=== PATIENT | male | born 1970 | race Caucasian/White ===

== ENCOUNTER 2019-06-19 14:51 | Outpatient (CLI) | payer OTHER, SELFPAY ==
--- NOTE | 2019-06-19 15:17 | XR_ITS ---
WS: [id number] KNEE LEFT TECHNIQUE: 3 views of the left knee CLINICAL INFORMATION: LEFT KNEE PAIN COMPARISON: None. FINDINGS: Left knee is normal in appearance. No evidence of acute fracture dislocation. No significant effusion . Patella is normal. XR/XR knee LT 3V* [id number] IMPRESSION: Normal left knee.
== END 2019-06-19 14:52 | disposition home or self-care (01) ==
LOC: WPI 14:58
PROVIDERS: Family Provider Family Medicine; PCP Family Medicine; Visit Provider Family Medicine
DX: M25.562 Pain in left knee (principal)
CPT/HCPCS: 73562

== ENCOUNTER 2019-12-16 17:47 | Emergency (ER) | payer OTHER, SELFPAY ==
[2019-12-16 18:23] VITALS: BP 115/72; PULSE 82; RESP 16; TEMP 36.7; O2SAT 96; BMI 25.0
--- NOTE | 2019-12-16 18:32 | W.ED.ABDPA2 ---
HPI - Abdominal Pain General: Chief Complaint: Abdominal Pain Stated Complaint: abd pain Time Seen by Provider: 12/16/19 18:30 Source: patient Mode of arrival: ambulatory Limitations: no limitations History of Present Illness: HPI narrative: Patient is a nice 49-year-old male who presents to ED today along with his for complaints of right lower abdominal pain. Patient tells me at the end of November he was having some right-sided abdominal pain and diagnosed clinically with diverticulitis as he has had similar flares previously. He was placed on Cipro and Flagyl and states the pain subsided after being on antibiotics. He states 3 days ago pain began again and seem to be different than his typical diverticulitis flares. He tells me pain seems to initially be better with eating but approximately 30 to 40 minutes later will have diffuse cramping and the urge to defecate. He states pain also seems to be worse with bending over. He has not been running fevers. He has not had any vomiting. No diarrhea. He has not had any melanotic stools or hematochezia. Patient was initially seen by PCP Dr. Boyce and sent to the emergency department for further evaluation. MD elicited complaint: abdominal pain Pertinent past history: diverticulitis Onset (ago): day(s) Pain Consistency: constant Location: RLQ Radiation: none Migration to: no migration Exacerbating factors: eating and movement Relieving factors: nothing Associated Symptoms: Denies chills, constipation, diarrhea, dysuria, fever(s), heartburn, hematochezia, hematemesis, melena, nausea and vomiting Review of Systems Const: Denies: fever(s), chills, body aches, fatigue or malaise Card: Denies: chest pain Resp: Denies: dyspnea GI: Reports: abdominal pain; Denies: nausea, vomiting, hematemesis, heartburn, diarrhea, constipation, hematochezia, melena or white/light colored stool : Denies: flank pain, difficulty urinating, dysuria, urinary frequency, urinary urgency or urinary hesitancy Musc: Denies: neck pain or back pain Skin/Breast: Denies: rash Neuro: Denies: headache(s) PFS ED PFSH: Social History (Updated 12/16/19 @ 18:29 by Arjun Vasquez RN) Smoking and tobacco status: never smoked Alcohol intake: never Substance/Drug Use: never Physical Exam Const: COMMON NORMALS: no acute distress, average body habitus, patient oriented x3, no limitations, healthy appearing, alert and well nourished Resp: COMMON NORMALS: normal respiratory effort and clear to auscultation bilaterally AUSCULTATION: clear to auscultation bilaterally Cardio: COMMON NORMALS: regular rate and regular rhythm RATE: regular rate RHYTHM: regular rhythm GI: COMMON NORMALS: Normal to inspection, nondistended, normoactive bowel sounds present, Soft to palpation, No hepatosplenomegaly present and no masses PALPATION: Yes Soft to palpation, Yes Tenderness to palpation present (GI) (mainly to RLQ; mild suprapubic and LLQ pain) and Yes No hepatosplenomegaly present : COMMON NORMALS: Yes no CVA tenderness BLADDER/KIDNEY EXAM: Yes no CVA tenderness Back/Pelvis: COMMON NORMALS: no CVA tenderness Extremity: COMMON NORMALS: normal to inspection Neuro: COMMON NORMALS: patient oriented x3 SENSORIUM/ORIENTATION: Yes alert Skin: COMMON NORMALS: no rashes or lesions noted GENERAL SKIN EXAM: no rashes or lesions noted Course Vital Signs: Vital signs: Vital Signs Temperature 98.0 F 12/16/19 18:23 Pulse Rate 78 12/16/19 20:00 Respiratory Rate 18 12/16/19 20:00 Blood Pressure 123/67 12/16/19 20:00 Pulse Oximetry 100 12/16/19 20:00 MDM - Abdominal Pain MDM Narrative: Medical decision making narrative: Patient's labs are non-concerning at this time. CT of his abdomen showing increased fecal content in the colon as well as some incidental findings of bilateral nonobstructing renal stones and enlarged prostate. Patient will be discharged home with instructions to increase fiber, use Colace/MiraLAX as needed for constipation, and recommend follow-up with Dr. Boyce. Strict return to ED precautions given. Lab Data: Labs: Lab Results 12/16/19 12/16/19 12/16/19 Range/Units 18:42 18:45 18:45 WBC Cancelled Corrected WBC Cancelled RBC Cancelled Hgb Cancelled Hct Cancelled MCV Cancelled MCH Cancelled MCHC Cancelled RDW Cancelled Plt Count Cancelled MPV Cancelled Gran % Cancelled Neut % (Auto) Cancelled Lymph % (Auto) Cancelled Hodgeman % (Auto) Cancelled Eos % (Auto) Cancelled Baso % (Auto) Cancelled Neut # (Auto) Cancelled Lymph # (Auto) Cancelled Hodgeman # (Auto) Cancelled Eos # (Auto) Cancelled Baso # (Auto) Cancelled Absolute Gran (aut o) Cancelled Nucleated RBC % (a uto) Cancelled Nucleated RBCs # Cancelled Sodium 136 (136-145) mmol/L Potassium 4.2 (3.5-5.1) mmol/L Chloride 97 L (98-107) mmol/L Carbon Dioxide 31 H (22-29) mmol/L Anion Gap 12.2 (5-19) BUN 15 (6-20) mg/dL Creatinine 0.9 (0.7-1.2) mg/dL GFR Calculation 90.4 (90-130) mL/min Glucose 112 (65-115) mg/dL Calculated Osmolal ity 279 L (285-295) mOsm/k g Lactic Acid (0.5-2.2) mmol/L Calcium 9.5 (8.5-10.5) mg/dL Total Bilirubin 0.7 (0.15-1.2) mg/dL AST 18 (0-40) U/L ALT 26 (0-41) U/L Alkaline Phosphata se 54 (40-130) IU/L Total Protein 7.5 (6.6-8.7) g/dL Albumin 4.8 (3.5-5.2) g/dL Globulin 2.7 (1.3-4.6) g/dL Lipase 83 H (13-60) U/L Urine Color Yellow (Yellow) Urine Appearance Clear (CLEAR) Urine pH 7 (5-7) Ur Specific Gravit y 1.010 (1.005-1.030) Urine Protein Neg (Negative) Urine Glucose (UA) Norm (Normal) Urine Ketones Negative (Negative) Urine Blood Neg (Negative) Urine Nitrate Negative (Negative) Urine Bilirubin Neg (NEGATIVE) Urine Urobilinogen Neg (Negative) mg/dL Ur Leukocyte Ramona ase Negative (Negative) Urine RBC None (0-2) /hpf Urine WBC None (0-5) /hpf Ur Squamous Epith Cells 0-4 H (0-5) Urine Bacteria None (NONE) 12/16/19 12/16/19 Range/Units 18:45 19:52 WBC 8.5 Corrected WBC RBC 4.84 Hgb 14.3 Hct 43.7 MCV 90.3 MCH 29.5 MCHC 32.7 RDW 12.0 L Plt Count 260 MPV 10.0 Gran % Neut % (Auto) 49.0 Lymph % (Auto) 37.3 Hodgeman % (Auto) 8.6 Eos % (Auto) 4.3 Baso % (Auto) 0.6 Neut # (Auto) 4.15 Lymph # (Auto) 3.2 Hodgeman # (Auto) 0.7 Eos # (Auto) 0.4 Baso # (Auto) 0.1 Absolute Gran (aut o) Nucleated RBC % (a uto) 0 Nucleated RBCs # 0.0 Sodium (136-145) mmol/L Potassium (3.5-5.1) mmol/L Chloride (98-107) mmol/L Carbon Dioxide (22-29) mmol/L Anion Gap (5-19) BUN (6-20) mg/dL Creatinine (0.7-1.2) mg/dL GFR Calculation (90-130) mL/min Glucose (65-115) mg/dL Calculated Osmolal ity (285-295) mOsm/k g Lactic Acid 0.5 (0.5-2.2) mmol/L Calcium (8.5-10.5) mg/dL Total Bilirubin (0.15-1.2) mg/dL AST (0-40) U/L ALT (0-41) U/L Alkaline Phosphata se (40-130) IU/L Total Protein (6.6-8.7) g/dL Albumin (3.5-5.2) g/dL Globulin (1.3-4.6) g/dL Lipase (13-60) U/L Urine Color (Yellow) Urine Appearance (CLEAR) Urine pH (5-7) Ur Specific Gravit y (1.005-1.030) Urine Protein (Negative) Urine Glucose (UA) (Normal) Urine Ketones (Negative) Urine Blood (Negative) Urine Nitrate (Negative) Urine Bilirubin (NEGATIVE) Urine Urobilinogen (Negative) mg/dL Ur Leukocyte Ramona ase (Negative) Urine RBC (0-2) /hpf Urine WBC (0-5) /hpf Ur Squamous Epith Cells (0-5) Urine Bacteria (NONE) Imaging Data ^: CT Abd/Pel: Radiologist's impression: [facility] [address] [place] [address] CT Scan Report Signed Patient: Edwin Almeida Unit #: [id number] : 1970 Age/Sex: 49 / M ADM Date: 12/16/19 Loc: ER Room/Bed: Attending Dr: Ordering Provider/Ordering MD: Laura Rollins Date of Service: 12/16/19 Procedure(s): CT abdomen pelvis w con* [id number] Accession Number(s): [id number] Report Number: [id number] PROCEDURE INFORMATION: Exam: CT Abdomen And Pelvis With Contrast Exam date and time: 12/16/2019 7:01 PM Age: 49 years old Clinical indication: Other: Diarrhea; Abdominal pain; Other: Lower and RT side; Additional info: R sided abdominal pain TECHNIQUE: Imaging protocol: Computed tomography of the abdomen and pelvis with intravenous contrast. Sagittal and coronal reformatted images were created and reviewed. Radiation optimization: All CT scans at this facility use at least one of these dose optimization techniques: automated exposure control; mA and/or kV adjustment per patient size (includes targeted exams where dose is matched to clinical indication); or iterative reconstruction. Contrast material: OMNI 300; Contrast volume: 94 ml; Contrast route: INTRAVENOUS (IV); COMPARISON: No relevant prior studies available. RADIATION DOSE METRICS: Total DLP (mGy-cm): 709.41 FINDINGS: Lungs: Visualized lungs are clear. Pleural space: No pleural effusion. Heart: Visualized portions of the heart are unremarkable. Liver: The liver is unremarkable. Gallbladder and bile ducts: The gallbladder is unremarkable. No biliary ductal dilatation. Pancreas: The pancreas is unremarkable. No pancreatic ductal dilatation. Spleen: The spleen is unremarkable. Adrenals: The right and left adrenal glands are unremarkable. Kidneys and ureters: Nonobstructing stones in both right and left kidneys. The right renal stone measures 2.1 mm. The left renal stone measures 2.8 mm. The right and left ureters are unremarkable. Stomach and bowel: Increased fecal content in the colon. No acute abnormality in the small bowel. Ingested contents in the stomach. Appendix: The appendix is visualized and is unremarkable. No findings to suggest acute appendicitis. Intraperitoneal space: No free intraperitoneal air. No ascites. No loculated fluid collections to suggest an abscess. Vasculature: Mild atherosclerotic changes in the visualized arteries. No evidence for aortic aneurysm or aortic dissection. Lymph nodes: No lymphadenopathy. Bladder: Unremarkable as visualized. Reproductive: The prostate gland is mildly enlarged. Nonspecific parenchymal calcifications in the prostate gland. Calcifications are seen in the visualized penile shaft. Bones/joints: Multilevel degenerative changes of varying severity in the visualized spine. Soft tissues: No acute abnormality in the extra-abdominal soft tissues. CT/CT abdomen pelvis w con* [id number] IMPRESSION: 1. No acute abnormality in the abdomen or pelvis. 2. Bilateral nonobstructing renal stones. 3. Incidental/nonacute findings are listed in the report. In Radiation Dose CTDIVOL = (mGy): DLP = 709.41 (mGy-cm) Dictated By: Nancy Marquez MD Signed By: Nancy Marquez MD Signed Date/Time: 12/16/191941 Discharge Plan Discharge Patient Disposition: Home, Self-Care Clinical Impression: Colonic constipation Condition: Stable Discharge Orders: Discharge Order (Routine); Ordered 12/16/19 Ordered By: Laura Rollins Referrals: Dharmesh Saxena DO [Primary Care Provider] - Patient Instructions: Constipation - Adult, Constipation (ED), High Fiber Diet (ED) Activity Restrictions/Additional Instructions: As discussed try increasing fiber content with fruits and vegetables, Colace, MiraLAX as needed for constipation. Return to the emergency department for worsening abdominal pain, repetitive episodes of vomiting, fevers greater than 100.4, or any other concerns you may have. He may otherwise follow-up with Dr. Boyce. I hope you begin to feel better soon. Coding Level of Care Code ED Machine Stonecutter for Chg Fwd Exam Detailed
[2019-12-16 18:53] VITALS: RESP 18
[2019-12-16] MEDS: sodium chloride 0.9% 1,000 ML 100 ML IV (19:02)
[2019-12-16 19:03] LABS: Lactic Sepsis W/Reflex 0.5 mmol/L (0.5-2.2)
[2019-12-16 19:04] LABS: Alanine Aminotransferase 26 U/L (0-41); Albumin Level 4.8 g/dL (3.5-5.2); Alkaline Phosphatase 54 IU/L (40-130); Anion Gap 12.2 (5-19); Aspartate Amino Transferase 18 U/L (0-40); Blood Urea Nitrogen 15 mg/dL (6-20); Calcium 9.5 mg/dL (8.5-10.5); Carbon Dioxide 31 mmol/L (22-29); Chloride 97 mmol/L (98-107); Globulin 2.7 g/dL (1.3-4.6); Glomerular Filtration Rate 90.4 mL/min (90-130); Glucose 112 mg/dL (65-115); Lipase 83 U/L (13-60); Osmolality Calculated 279 mOsm/kg (285-295); Potassium 4.2 mmol/L (3.5-5.1); Sodium 136 mmol/L (136-145); Total Bilirubin 0.7 mg/dL (0.15-1.2); Total Protein 7.5 g/dL (6.6-8.7)
[2019-12-16 19:24] LABS: Add Urine Culture? No; Bilirubin Urine Neg (NEGATIVE); Blood Urine Neg (Negative); Glucose Urine UA Norm (Normal); Ketones Urine Negative (Negative); Leukocyte Esterase Urine Negative (Negative); Nitrate Urine Negative (Negative); Protein Urine Neg (Negative); Squamous Epithelial Cell Urine 0-4 (0-5); Urine Appearance Clear (CLEAR); Urine Color Yellow (Yellow); Urobilinogen Urine Neg (Negative); pH Urine 7 (5-7)
[2019-12-16] MEDS: iohexol 300 mg/mL 100 mL Btl IV (19:28)
[2019-12-16 19:56] LABS: Basophils # 0.1 10^3/uL (0.0-0.1); Basophils % 0.6 %; Eosinophils # 0.4 10^3/uL (0.0-0.8); Eosinophils % 4.3 %; Hematocrit 43.7 % (42.0-52.0); Hemoglobin 14.3 g/dL (11.7-16.6); Lymphocytes # 3.2 10^3/uL (0.8-4.8); Lymphocytes % 37.3 %; Mean Corpuscular HGB Conc 32.7 g/dL (30.0-36.0); Mean Corpuscular Hemoglobin 29.5 pg (28.0-34.0); Mean Corpuscular Volume 90.3 fL (80-94); Monocytes # 0.7 10^3/uL (0.2-0.9); Monocytes % 8.6 %; Neutrophils # 4.15 10^3/uL (1.8-7.7); Nucleated Red Blood Cells % 0 %; Platelet Count 260 10^3/cmm (130-400); Red Blood Count 4.84 10^6/uL (4.1-5.3); White Blood Count 8.5 10^3/uL (4.0-10.0)
[2019-12-16 20:00] VITALS: BP 123/67; PULSE 78; RESP 18; O2SAT 100
[2019-12-16 21:00] VITALS: BP 123/67; PULSE 78; RESP 18; O2SAT 100
== END 2019-12-16 21:01 | disposition home or self-care (01) ==
PROVIDERS: Emergency Medicine; Emergency Provider Physician Assistant; PCP Family Medicine
DX: K59.09 Other constipation (principal)
CPT/HCPCS: 12345; 36415; 74177; 80053; 81001; 83605; 83690; 85025; 96360; 96361; 99283; J7030; Q9967

== ENCOUNTER → 2020-04-08 09:41 | Outpatient (BNVA) | payer OTHER, SELFPAY | PROVIDERS: PCP Family Medicine; Visit Provider Urology | DX: N52.9 Male erectile dysfunction, unspecified (principal); N48.6 Induration penis plastica | CPT/HCPCS: 81003 ==

== ENCOUNTER 2020-04-26 08:57 | Emergency (ER) | payer OTHER, SELFPAY ==
[2020-04-26 09:15] VITALS: BP 105/72; PULSE 83; RESP 14; TEMP 36.8; O2SAT 97; BMI 25.6
--- NOTE | 2020-04-26 09:44 | XR_ITS ---
WS: [id number] PORTABLE CHEST HISTORY: syncope COMPARISON: 09/06/2014 Lungs are clear and well expanded. No pleural effusion or pneumothorax. Cardiac size: Normal. Mediastinum/Aorta: Normal mediastinum. No osseous abnormality seen. XR/XR chest 1V portable [id number] IMPRESSION: Unremarkable portable chest.
--- NOTE | 2020-04-26 10:12 | ED_ITS ---
HPI - Weakness General: Chief complaint: Weakness Stated complaint: FATIGUE Time Seen by Provider: 04/26/20 09:43 History of Present Illness: HPI Narrative: 49-year-old male patient presents to the emergency department with 8-day history of fever and weakness. He reports highest temperature reading 100.2. He reports difficulty sleeping with dizzy spells. Reports history of bradycardia and questions his weakness and dizziness to bradycardia. States monitors his heart rate at home with 58-80 readings. He reports went to urgent care on 1116, prescribed antibiotics for pansinusitis states did get some better but then developed worsening symptoms. He denies diarrhea, denies loss of sense of smell or taste, denies nausea, reports decreased appetite. States his spouse is now ill with similar symptoms. MD Complaint: generalized weakness and lack of energy Onset (ago): day(s) (8) Duration: constant and progressively worsening Location: generalized Severity: moderate Relieving factors: rest Exacerbating factors: movement and exertion Associated symptoms: Reports chills and fever(s); Denies chest pain, dysuria, easy bruising, headache(s), nausea or vomiting Review of Systems General: Reports: 10 or more systems reviewed and unremarkable except in HPI and below Const: Reports: fever(s), chills, change in appetite, fatigue and malaise; Denies: body aches Eyes: Denies: change in vision, blurry vision, eye discomfort or eye redness ENMT: Denies: throat pain, swelling of lips/tongue, dental pain, ear discharge or disequilibrium Card: Denies: chest pain, palpitations, irregular heart rhythm, swelling of feet/ankles or lightheadedness Resp: Reports: dyspnea (due to weakness); Denies: productive cough, non-productive cough, wheezing or chest congestion GI: Denies: abdominal pain, nausea, vomiting, diarrhea or constipation : Denies: difficulty urinating, dysuria or urinary urgency Musc: Denies: neck pain, back pain or joint pain Skin/Breast: Denies: rash or pruritus Neuro: Denies: headache(s), weakness in extremities or behavioral changes Psych: Denies: anxiety or depression Davy/Lymph: Denies: easy bruising PFS ED PFSH: Medical History (Updated 04/26/20 @ 13:55 by Kaylene Bekah Pool, TRIMMER AND BORER MACHINE OPERATOR) Erectile dysfunction Peyronie's disease Social History (Updated 04/20/20 @ 13:54 by Ignacia Grey LPN) Smoking and tobacco status: current every day smoker smokeless tobacco Alcohol intake: never Adopted: No Caregiver/support person: No Lives independently: No Household members: spouse Marital status: Current occupational status: employed Physical Exam Const: COMMON NORMALS: no acute distress, patient oriented x3, healthy appearing, alert and well nourished GENERAL APPEARANCE: cooperative, well kempt, well developed, well hydrated and other (appears tired); not in distress, not anxious and not ill appearing NUTRITIONAL APPEARANCE: thin ORIENTATION/CONSCIOUSNESS: Yes awake, Yes oriented to person, Yes oriented to place and Yes oriented to time HENMT: COMMON NORMALS: normocephalic, atraumatic, external ears normal, EAC's normal, TM's normal bilaterally, Normal external nose present and moist oral mucous membranes HEAD & SCALP: normal to inspection, normocephalic and atraumatic FACE & SINUS: normal facial exam and sinuses nontender NOSE: Normal external nose present EXTERNAL EAR: Yes external ears normal EXTERNAL AUDITORY CANAL: EAC's normal TYMPANIC MEMBRANE: TM's normal bilaterally MOUTH: Normal oral and palatal mucosa present THROAT: posterior oropharynx normal Eye: COMMON NORMALS: Equal, round and reactive pupils present and EOMs intact bilaterally GENERAL EYE: appearance normal, both eyes and all related structures ALIGNMENT: Yes alignment normal PERIORBITAL: periorbital findings normal PUPIL: Yes Equal, round and reactive pupils present Neck/C-Spine: COMMON NORMALS: full ROM and no lymphadenopathy GENERAL: Yes normal visual inspection and Yes trachea midline CERVICAL SPINE: Yes cervical ROM normal Lymph: LYMPHATIC: no lymphadenopathy noted Chest: COMMONS NORMALS: normal inspection of the chest and normal palpation of entire chest wall Resp: COMMON NORMALS: normal respiratory effort, No retractions, No use of accessory muscles and clear to auscultation bilaterally EFFORT & INSPECTION: Yes able to speak in complete sentences, No abnormal respiratory pattern, No tachypneic and No uses accessory muscles AUSCULTATION: clear to auscultation bilaterally Cardio: COMMON NORMALS: regular rate, regular rhythm, S1 normal heart sound present, S2 normal heart sound present and Peripheral pulses 2+ throughout RATE: regular rate RHYTHM: regular rhythm HEART SOUNDS: S1 normal heart sound present and S2 normal heart sound present PERIPHERAL PULSES: Peripheral pulses 2+ throughout GI: COMMON NORMALS: Normal to inspection, nondistended, normoactive bowel sounds present, Soft to palpation and non-tender INSPECTION: Yes normal to inspection PALPATION: Yes Soft to palpation : COMMON NORMALS: Yes no CVA tenderness BLADDER/KIDNEY EXAM: Yes no CVA tenderness Back/Pelvis: COMMON NORMALS: no CVA tenderness, thoracic and lumbar spine normal to inspection, no thoracic nor lumbar tenderness and thoraco-lumbar ROM normal Extremity: COMMON NORMALS: normal to inspection, full ROM and capillary refill normal GENERAL: Yes normal exam except as noted Neuro: SARAH COMA SCALE: document GCS findings Sarah coma scale eye opening: Spontaneous Sarah coma scale verbal response: Orientated Sarah coma scale motor response: Obey commands [place] coma scale total score: 15 COMMON NORMALS: patient oriented x3 and no focal motor deficits SENSORIUM/ORIENTATION: Yes alert, Yes oriented to person, Yes oriented to place and Yes oriented to time SPEECH: speech normal GAIT: Yes Normal gait present MOTOR EXAM: 5/5 motor strength present throughout Psych: COMMON NORMALS: mental status grossly normal, Normal thought process present and cooperative APPEARANCE: Yes well kempt ACTIVITY/MOTOR BEHAVIOR: Yes appropriate eye contact THOUGHT PROCESS: Normal thought process present Skin: COMMON NORMALS: no rashes or lesions noted and turgor normal GENERAL SKIN EXAM: no rashes or lesions noted and turgor normal Course ED course: 49-year-old male patient presents to the emergency department with 8-day history of weakness and not feeling well. He reports spouse with similar symptoms that started 2 days ago. Covid positive during his stay. Cardiac enzymes negative, EKGs normal, chest x-ray without acute findings. Elevation of ESR and CRP noted. D-dimer negative. Oxygen saturation remained 95 to 100% during his stay. Home oxygen sensor provided with recommendation to monitor oxygen saturation frequently, advised return to the emergency department if he develops hypoxia or other worsening symptoms such as difficulty breathing or shortness of breath/nausea vomiting. He denies nausea upon exam, Zofran prescription offered but he declined. Advised to follow-up with his primary care provider in a week to ensure he is improving. Is advised to quarantine at home. Vital Signs: Vital signs: Vital Signs Temperature 98.3 F 04/26/20 09:15 Pulse Rate 83 04/26/20 09:15 Respiratory Rate 14 04/26/20 09:15 Blood Pressure 105/72 04/26/20 09:15 Pulse Oximetry 97 04/26/20 09:15 MDM - Weakness Lab Data: Labs: Lab Results 04/26/20 04/26/20 04/26/20 Range/Units 10:33 10:33 10:33 WBC 7.6 (4.0-10.0) 10^3/ uL RBC 5.58 H (4.1-5.3) 10^6/u L Hgb 16.5 (11.7-16.6) g/dL Hct 50.1 (42.0-52.0) % MCV 89.8 (80-94) fL MCH 29.6 (28.0-34.0) pg MCHC 32.9 (30.0-36.0) g/dL RDW 12.0 L (12.1-15.1) % Plt Count 220 (130-400) 10^3/c mm MPV 10.2 (7.4-10.4) fL Neut % (Auto) 78.8 % Lymph % (Auto) 13.0 % [place] % (Auto) 7.1 % Eos % (Auto) 0.5 % Baso % (Auto) 0.1 % Neut # (Auto) 5.99 (1.8-7.7) 10^3/u L Lymph # (Auto) 1.0 (0.8-4.8) 10^3/u L [place] # (Auto) 0.5 (0.2-0.9) 10^3/u L Eos # (Auto) 0.0 (0.0-0.8) 10^3/u L Baso # (Auto) 0.0 (0.0-0.1) 10^3/u L Nucleated RBC % (a uto) 0 % Nucleated RBCs # 0.0 /100WBC ESR 26 H (0-10) mm/hr D-Dimer 0.36 (0-0.59) ug/mIFE U Sodium (136-145) mmol/L Potassium (3.5-5.1) mmol/L Chloride (98-107) mmol/L Carbon Dioxide (22-29) mmol/L Anion Gap (5-19) BUN (6-20) mg/dL Creatinine (0.7-1.2) mg/dL GFR Calculation (90-130) mL/min Glucose (65-115) mg/dL Calculated Osmolal ity (285-295) mOsm/k g Lactate (0.5-2.2) mmol/L Calcium (8.5-10.5) mg/dL Ferritin (30-400) ng/mL Total Bilirubin (0.15-1.2) mg/dL AST (0-40) U/L ALT (0-41) U/L Alkaline Phosphata se (40-130) IU/L Troponin T Baselin e (0-15) ng/L C-Reactive Protein (0.0-4.9) mg/L Total Protein (6.6-8.7) g/dL Albumin (3.5-5.2) g/dL Globulin (1.3-4.6) g/dL Lipase (13-60) U/L Urine Color (Yellow) Urine Appearance (CLEAR) Urine pH (5-7) Ur Specific Gravit y (1.005-1.030) Urine Protein (Negative) Urine Glucose (UA) (Normal) Urine Ketones (Negative) Urine Blood (Negative) Urine Nitrate (Negative) Urine Bilirubin (Negative) Urine Urobilinogen (Negative) mg/dL Ur Leukocyte Ramona ase (Negative) Influenza Type A A g (Negative) Influenza Type B A g (Negative) SARS-CoV-2 Ag (Rap id) (Negative) 04/26/20 04/26/20 04/26/20 Range/Units 10:33 10:33 10:33 WBC (4.0-10.0) 10^3/ uL RBC (4.1-5.3) 10^6/u L Hgb (11.7-16.6) g/dL Hct (42.0-52.0) % MCV (80-94) fL MCH (28.0-34.0) pg MCHC (30.0-36.0) g/dL RDW (12.1-15.1) % Plt Count (130-400) 10^3/c mm MPV (7.4-10.4) fL Neut % (Auto) % Lymph % (Auto) % [place] % (Auto) % Eos % (Auto) % Baso % (Auto) % Neut # (Auto) (1.8-7.7) 10^3/u L Lymph # (Auto) (0.8-4.8) 10^3/u L [place] # (Auto) (0.2-0.9) 10^3/u L Eos # (Auto) (0.0-0.8) 10^3/u L Baso # (Auto) (0.0-0.1) 10^3/u L Nucleated RBC % (a uto) % Nucleated RBCs # /100WBC ESR (0-10) mm/hr D-Dimer (0-0.59) ug/mIFE U Sodium 135 L (136-145) mmol/L Potassium 3.9 (3.5-5.1) mmol/L Chloride 97 L (98-107) mmol/L Carbon Dioxide 25 (22-29) mmol/L Anion Gap 16.9 (5-19) BUN 17 (6-20) mg/dL Creatinine 0.9 (0.7-1.2) mg/dL GFR Calculation 90.4 (90-130) mL/min Glucose 274 H (65-115) mg/dL Calculated Osmolal ity 291 (285-295) mOsm/k g Lactate 1.5 (0.5-2.2) mmol/L Calcium 8.8 (8.5-10.5) mg/dL Ferritin 299 (30-400) ng/mL Total Bilirubin 0.4 (0.15-1.2) mg/dL AST 19 (0-40) U/L ALT 23 (0-41) U/L Alkaline Phosphata se 89 (40-130) IU/L Troponin T Baselin e 6 (0-15) ng/L C-Reactive Protein 27.1 H (0.0-4.9) mg/L Total Protein 6.7 (6.6-8.7) g/dL Albumin 4.0 (3.5-5.2) g/dL Globulin 2.7 (1.3-4.6) g/dL Lipase 19 (13-60) U/L Urine Color (Yellow) Urine Appearance (CLEAR) Urine pH (5-7) Ur Specific Gravit y (1.005-1.030) Urine Protein (Negative) Urine Glucose (UA) (Normal) Urine Ketones (Negative) Urine Blood (Negative) Urine Nitrate (Negative) Urine Bilirubin (Negative) Urine Urobilinogen (Negative) mg/dL Ur Leukocyte Ramona ase (Negative) Influenza Type A A g (Negative) Influenza Type B A g (Negative) SARS-CoV-2 Ag (Rap id) (Negative) 04/26/20 04/26/20 04/26/20 Range/Units 10:36 10:36 12:10 WBC (4.0-10.0) 10^3/ uL RBC (4.1-5.3) 10^6/u L Hgb (11.7-16.6) g/dL Hct (42.0-52.0) % MCV (80-94) fL MCH (28.0-34.0) pg MCHC (30.0-36.0) g/dL RDW (12.1-15.1) % Plt Count (130-400) 10^3/c mm MPV (7.4-10.4) fL Neut % (Auto) % Lymph % (Auto) % [place] % (Auto) % Eos % (Auto) % Baso % (Auto) % Neut # (Auto) (1.8-7.7) 10^3/u L Lymph # (Auto) (0.8-4.8) 10^3/u L [place] # (Auto) (0.2-0.9) 10^3/u L Eos # (Auto) (0.0-0.8) 10^3/u L Baso # (Auto) (0.0-0.1) 10^3/u L Nucleated RBC % (a uto) % Nucleated RBCs # /100WBC ESR (0-10) mm/hr D-Dimer (0-0.59) ug/mIFE U Sodium (136-145) mmol/L Potassium (3.5-5.1) mmol/L Chloride (98-107) mmol/L Carbon Dioxide (22-29) mmol/L Anion Gap (5-19) BUN (6-20) mg/dL Creatinine (0.7-1.2) mg/dL GFR Calculation (90-130) mL/min Glucose (65-115) mg/dL Calculated Osmolal ity (285-295) mOsm/k g Lactate (0.5-2.2) mmol/L Calcium (8.5-10.5) mg/dL Ferritin (30-400) ng/mL Total Bilirubin (0.15-1.2) mg/dL AST (0-40) U/L ALT (0-41) U/L Alkaline Phosphata se (40-130) IU/L Troponin T Baselin e (0-15) ng/L C-Reactive Protein (0.0-4.9) mg/L Total Protein (6.6-8.7) g/dL Albumin (3.5-5.2) g/dL Globulin (1.3-4.6) g/dL Lipase (13-60) U/L Urine Color Yellow (Yellow) Urine Appearance Clear (CLEAR) Urine pH 5 (5-7) Ur Specific Gravit y 1.015 (1.005-1.030) Urine Protein Neg (Negative) Urine Glucose (UA) 4+ H (Normal) Urine Ketones 1+ H (Negative) Urine Blood Neg (Negative) Urine Nitrate Negative (Negative) Urine Bilirubin Neg (Negative) Urine Urobilinogen Norm (Negative) mg/dL Ur Leukocyte Ramona ase Negative (Negative) Influenza Type A A g Negative (Negative) Influenza Type B A g Negative (Negative) SARS-CoV-2 Ag (Rap id) Positive H (Negative) Imaging Data^: CXR: Radiologist's impression: [address] [address] XRay Report Signed Patient: Edwin Almeida Unit #: [id number] : 1970 Age/Sex: 49 / M ADM Date: 04/26/20 Loc: ER Room/Bed: Attending Dr: Ordering Provider/Ordering MD: Kaylene Rodriguez Date of Service: 04/26/20 Procedure(s): XR chest 1V portable [id number] Accession Number(s): [id number] Report Number: [id number] WS: [id number] PORTABLE CHEST HISTORY: syncope COMPARISON: 09/06/2014 Lungs are clear and well expanded. No pleural effusion or pneumothorax. Cardiac size: Normal. Mediastinum/Aorta: Normal mediastinum. No osseous abnormality seen. XR/XR chest 1V portable [id number] IMPRESSION: Unremarkable portable chest. Dictated By: Reba Moffett DO Signed By: Reba Moffett Jorge L STEVENSON Signed Date/Time: 04/26/20958 DD/ 8 EKG Data^: EKG 1: EKG interpretation date: 04/26/20 Computer generated interpretation: Sinus rhythm, bradycardia no longer present, sinus arrhythmia no longer present, ventricular rate 84 EKG 2: EKG interpretation date: 04/26/20 EKG interpretation time: 12:48 Computer generated interpretation: Ventricular rate 70, sinus rhythm, normal ECG Discharge Plan Discharge Patient Disposition: Home Clinical Impression: COVID-19, Generalized muscle weakness Condition: Stable Prescriptions: No Action pentoxifylline 400 mg tablet extended release 400 mg PO BID RF: 0 zolpidem 10 mg tablet 10 mg PO BEDTIME RF: 0 Complete Multivitamin Tablet 1 tab PO DAILY RF: 0 Zyrtec 10 mg capsule 10 mg PO DAILY RF: 0 vitamin E 200 unit capsule 200 unit PO DAILY RF: 0 glipizide 10 mg tablet 10 mg PO DAILY RF: 0 levothyroxine 88 mcg capsule 75 mcg PO DAILY RF: 0 simvastatin 10 mg tablet 20 mg PO DAILY RF: 0 Januvia 50 mg tablet 100 mg PO DAILY RF: 0 amoxicillin-pot clavulanate [Augmentin] 875-125 mg tablet 1 tab PO BID 10 Days Qty: 20 RF: 0 sildenafil 100 mg tablet 100 mg PO DAILY PRN (Reason: sexual activity) Qty: 20 RF: 2 tamsulosin 0.4 mg capsule 0.4 mg PO DAILY RF: 0 Referrals: Dharmesh Saxena DO [Primary Care Provider] - Discharge Diet: Usual diet Discharge Activity: Limit activity as instructed Patient Instructions: Viral Syndrome (ED), Weakness (ED) Activity Restrictions/Additional Instructions: You have tested positive for COVID-19. Antibiotics will not help with improvement. Home oxygen monitor device has been provided, please check your oxygen saturation frequently. Normal oxygen level is 90 to 100%. If you note oxygen level decreasing below 90, you will need to return to the emergency department immediately You will need to rest at home, remain in quarantine, do not visit other individuals. [facility] will be contacting you with further instructions Tylenol and ibuprofen as needed for pain/fever You will need to drink lots and lots of fluids to remain hydrated and to help with fever Follow-up with your primary care provider in 1 week. Coding Level of Care Code ED Balloon Design Printer for Chg Fwd Exam Comprehensive
--- NOTE | 2020-04-26 10:13 | ECG_ITS ---
[facility] Test Date: 2020-04-26 Pat Name: Edwin Almeida Department: Room: Gender: Male Flying Teacher: : 1970 Requested By: Kaylene Godfrey Order Number: [id number] Bobbi MD: Carlos Joseph M.D. Measurements Intervals [place] Rate: 74 P: 42 CT: 190 QRS: 38 QRSD: 97 T: 49 QT: 379 QTc: 421 Interpretive Statements SINUS RHYTHM Compared to ECG 09/07/2014 06:13:37 Sinus bradycardia no longer present Sinus arrhythmia no longer present Electronically Signed On 04-26-2020 16:37:42 SENIOR MANAGER ASSET PROTECTION by Carlos Joseph M.D. [id number]
[2020-04-26 10:54] LABS: Basophils % 0.1 %; Eosinophils % 0.5 %; Hematocrit 50.1 % (42.0-52.0); Hemoglobin 16.5 g/dL (11.7-16.6); Mean Corpuscular HGB Conc 32.9 g/dL (30.0-36.0); Mean Corpuscular Hemoglobin 29.6 pg (28.0-34.0); Mean Corpuscular Volume 89.8 fL (80-94); Mean Platelet Volume 10.2 fL (7.4-10.4); Monocytes # 0.5 10^3/uL (0.2-0.9); Monocytes % 7.1 %; Neutrophils # 5.99 10^3/uL (1.8-7.7); Neutrophils % 78.8 %; Nucleated Red Blood Cells % 0 %; Platelet Count 220 10^3/cmm (130-400); Red Blood Count 5.58 10^6/uL (4.1-5.3); White Blood Count 7.6 10^3/uL (4.0-10.0)
[2020-04-26 11:08] LABS: D Dimer 0.36 ug/mIFEU (0-0.59)
[2020-04-26 11:14] LABS: Alanine Aminotransferase 23 U/L (0-41); Alkaline Phosphatase 89 IU/L (40-130); Anion Gap 16.9 (5-19); Aspartate Amino Transferase 19 U/L (0-40); Blood Urea Nitrogen 17 mg/dL (6-20); C Reactive Protein 27.1 mg/L (0.0-4.9); Calcium 8.8 mg/dL (8.5-10.5); Carbon Dioxide 25 mmol/L (22-29); Chloride 97 mmol/L (98-107); Ferritin 299 ng/mL (30-400); Globulin 2.7 g/dL (1.3-4.6); Glomerular Filtration Rate 90.4 mL/min (90-130); Glucose 274 mg/dL (65-115); Lipase 19 U/L (13-60); Osmolality Calculated 291 mOsm/kg (285-295); Potassium 3.9 mmol/L (3.5-5.1); Sodium 135 mmol/L (136-145); Total Bilirubin 0.4 mg/dL (0.15-1.2); Total Protein 6.7 g/dL (6.6-8.7)
[2020-04-26 11:15] LABS: Troponin(5th) Baseline 6 ng/L (0-15)
[2020-04-26 11:32] LABS: Lactate (Lactic Acid level) 1.5 mmol/L (0.5-2.2)
[2020-04-26 12:12] LABS: Erythrocyte Sedimentation Rate 26 mm/hr (0-10)
--- NOTE | 2020-04-26 12:13 | ECG_ITS ---
[facility] Test Date: 2020-04-26 Pat Name: Edwin Almeida Department: Room: Gender: Male Carpet Jack: : 1970 Requested By: Kaylene Godfrey Order Number: [id number] Bobbi MD: Carlos Joseph M.D. Measurements Intervals [place] Rate: 70 P: 47 NC: 189 QRS: 41 QRSD: 90 T: 55 QT: 389 QTc: 422 Interpretive Statements SINUS RHYTHM Compared to ECG 04/26/2020 10:42:55 No significant changes Electronically Signed On 04-26-2020 16:42:58 EXECUTIVE TALENT ACQUISITION CONSULTANT by Carlos Joseph M.D. [id number]
[2020-04-26 12:40] LABS: Add Urine Microscopic? NO; Bilirubin Urine Neg (Negative); Blood Urine Neg (Negative); Glucose Urine UA 4+ (Normal); Ketones Urine 1+ (Negative); Leukocyte Esterase Urine Negative (Negative); Nitrate Urine Negative (Negative); Protein Urine Neg (Negative); Specific Gravity, Urine 1.015 (1.005-1.030); Urine Appearance Clear (CLEAR); Urine Color Yellow (Yellow); Urobilinogen Urine Norm (Negative); pH Urine 5 (5-7)
[2020-04-26 12:46] LABS: Influenza A by IFA Negative (Negative); Influenza B by IFA Negative (Negative); SARS Covid-2 Antigen Positive (Negative)
[2020-04-26] MEDS: sodium chloride 0.9% 500 ML 999 ML IV (14:39)
[2020-04-26] MEDS: acetaminophen 325 mg Tablet 650 MG PO (14:40)
[2020-04-26 15:07] VITALS: BP 112/80; PULSE 73; RESP 18; O2SAT 98
[2020-04-28 06:52] LABS: Quest SARS-CoV-2 RNA DETECTED (NOT DETECTED)
--- NOTE | 2020-04-28 08:47 | PC.NURSE ---
pt contacted and given the results of his covid test
--- NOTE | 2020-04-28 08:48 | PC.NURSE ---
pt contacted and given the results of her covid test.
== END 2020-04-26 15:08 | disposition home or self-care (01) ==
PROVIDERS: Emergency Provider Nurse Practitioner Family; PCP Family Medicine
DX: U07.1 COVID-19 (principal); R53.1 Weakness; F17.210 Nicotine dependence, cigarettes, uncomplicated
CPT/HCPCS: 12345; 71045; 80053; 81003; 82728; 83605; 83690; 84484; 85025; 85378; 85651; 86140; 87426; 87635; 87804; 93005; 99282; 99283; J7040

== ENCOUNTER → 2020-08-03 11:14 | Outpatient (BNVA) | payer OTHER, SELFPAY | PROVIDERS: PCP Family Medicine; Visit Provider Nurse Practitioner | DX: M54.9 Dorsalgia, unspecified (principal); N41.0 Acute prostatitis | CPT/HCPCS: 81000 ==

== ENCOUNTER → 2020-08-24 08:52 | Outpatient (BNVA) | payer SELFPAY | PROVIDERS: PCP Family Medicine; Visit Provider Dermatology | DX: Z01.89 Encounter for other specified special examinations (principal) | CPT/HCPCS: 85025 ==

== ENCOUNTER → 2021-03-17 08:18 | Outpatient (BNVA) | payer OTHER, SELFPAY | PROVIDERS: PCP Family Medicine; Referring Provider Family Medicine; Visit Provider Internal Medicine | DX: E11.40 Type 2 diabetes mellitus with diabetic neuropathy, unspecified (principal); E03.9 Hypothyroidism, unspecified; E78.5 Hyperlipidemia, unspecified; N20.0 Calculus of kidney | CPT/HCPCS: 99204 ==

== ENCOUNTER 2021-03-17 09:22 | Outpatient (CLI) | payer OTHER, SELFPAY ==
[2021-03-17 10:22] LABS: Estmated Average Glucose 169; Hemoglobin A1C 7.5 % (4.0-6.0)
[2021-03-17 10:29] LABS: Calcium 9.5 mg/dL (8.5-10.5)
[2021-03-17 10:32] LABS: Parathyroid Hormone 24.4 pg/mL (15-65)
[2021-03-17 10:47] LABS: 25 Hydroxy Vitamin D 51 ng/mL (30-100)
[2021-03-17 11:21] LABS: Free T4 Free Thyroxine 1.34 ng/dL (0.82-1.77)
== END 2021-03-17 09:23 | disposition home or self-care (01) ==
PROVIDERS: PCP Family Medicine; Visit Provider Internal Medicine
DX: E03.9 Hypothyroidism, unspecified (principal); E11.9 Type 2 diabetes mellitus without complications
CPT/HCPCS: 36415; 82306; 82310; 83036; 83970; 84439; 84443

== ENCOUNTER 2021-06-16 07:28 | Outpatient (CLI) | payer OTHER, SELFPAY ==
[2021-06-16 10:48] LABS: Cortisol Random 15.55 ug/dL (2.47-19.5)
[2021-06-16 10:51] LABS: Chol HDL Ratio 4.45 mg/dL (1.0-5.00); Cholesterol 209 mg/dL (0-200); Free T4 Free Thyroxine 1.26 ng/dL (0.82-1.77); HDL Cholesterol 47 mg/dL (60-100); LDL Cholesterol Calculated 151 mg/dL (50-129); LDL HDL Ratio 3.21 RATIO (0.00-3.22); Testosterone Total 288.3 ng/dL (249-836); Thyroid Stimulating Hormone 4.35 uIU/mL (0.27-4.20); Triglycerides 57 mg/dL (0-150)
[2021-06-16 11:16] LABS: Follicle Stimulating Hormone 5.5 mIU/mL (1.5-12.4); Luteinizing Hormone 2.8 mIU/mL (1.7-8.6); Prolactin 5.11 ng/mL (4.0-15.2)
[2021-06-20 09:23] LABS: Testosterone, Free 45.4 pg/mL (46.0-224.0)
== END 2021-06-16 07:29 | disposition home or self-care (01) ==
LOC: LAB 07:33
PROVIDERS: PCP Family Medicine; Visit Provider Internal Medicine
DX: E03.9 Hypothyroidism, unspecified (principal); E11.9 Type 2 diabetes mellitus without complications; E78.5 Hyperlipidemia, unspecified; N20.0 Calculus of kidney; N48.6 Induration penis plastica; N52.9 Male erectile dysfunction, unspecified
CPT/HCPCS: 80061; 82533; 83001; 83002; 84146; 84402; 84403; 84439; 84443

== ENCOUNTER → 2021-07-14 13:50 | Outpatient (BNVA) | payer OTHER, SELFPAY | PROVIDERS: PCP Family Medicine; Visit Provider Urology | DX: N20.0 Calculus of kidney (principal); N52.9 Male erectile dysfunction, unspecified; N48.6 Induration penis plastica; Z30.09 Encounter for other general counseling and advice on contraception | CPT/HCPCS: 81003 ==

== ENCOUNTER 2021-09-13 08:37 | Outpatient (CLI) | payer BC, SELFPAY ==
[2021-09-13 09:38] LABS: Free T4 Free Thyroxine 1.54 ng/dL (0.82-1.77); Thyroid Stimulating Hormone 1.49 uIU/mL (0.27-4.20)
[2021-09-13 10:24] LABS: Cortisol Random 13.02 ug/dL (2.47-19.5)
[2021-09-13 10:54] LABS: Follicle Stimulating Hormone 8.2 mIU/mL (1.5-12.4); Luteinizing Hormone 7.7 mIU/mL (1.7-8.6); Prolactin 4.91 ng/mL (4.0-15.2)
[2021-09-15 22:52] LABS: Testosterone, Free 62.7 pg/mL (46.0-224.0)
== END 2021-09-13 08:38 | disposition home or self-care (01) ==
LOC: LAB 08:39
PROVIDERS: PCP Family Medicine; Visit Provider Internal Medicine
DX: E03.9 Hypothyroidism, unspecified (principal); E11.9 Type 2 diabetes mellitus without complications; E78.5 Hyperlipidemia, unspecified; N48.6 Induration penis plastica; N52.9 Male erectile dysfunction, unspecified
CPT/HCPCS: 82533; 83001; 83002; 84146; 84402; 84403; 84439; 84443

== ENCOUNTER → 2021-12-12 10:45 | Outpatient (BNVA) | payer BC, SELFPAY | PROVIDERS: PCP Family Medicine; Visit Provider Podiatrist Foot & Ankle Surgery | DX: M79.671 Pain in right foot (principal); M79.672 Pain in left foot | CPT/HCPCS: 73630 ==

== ENCOUNTER 2021-12-20 07:09 | Outpatient (CLI) | payer BC, SELFPAY ==
[2021-12-20 08:10] LABS: Alanine Aminotransferase 15 U/L (0-41); Albumin Level 4.1 g/dL (3.5-5.2); Alkaline Phosphatase 54 IU/L (40-130); Anion Gap 11.4 (5-19); Aspartate Amino Transferase 12 U/L (0-40); Blood Urea Nitrogen 16 mg/dL (6-20); Calcium 8.9 mg/dL (8.5-10.5); Carbon Dioxide 30 mmol/L (22-29); Chloride 103 mmol/L (98-107); Chol HDL Ratio 4.44 mg/dL (1.0-5.00); Cholesterol 213 mg/dL (0-200); Free T4 Free Thyroxine 1.24 ng/dL (0.82-1.77); Globulin 2.2 g/dL (1.3-4.6); Glomerular Filtration Rate 89.7 mL/min (90-130); Glucose 116 mg/dL (65-115); HDL Cholesterol 48 mg/dL (60-100); LDL Cholesterol Calculated 147 mg/dL (50-129); LDL HDL Ratio 3.06 RATIO (0.00-3.22); Osmolality Calculated 292 mOsm/kg (285-295); Potassium 4.4 mmol/L (3.5-5.1); Sodium 140 mmol/L (136-145); Testosterone Total 541.3 ng/dL (249-836); Thyroid Stimulating Hormone 2.23 uIU/mL (0.27-4.20); Total Bilirubin 0.4 mg/dL (0.15-1.2); Total Protein 6.3 g/dL (6.6-8.7); Triglycerides 90 mg/dL (0-150)
[2021-12-20 08:53] LABS: Estmated Average Glucose 146; Hemoglobin A1C 6.7 % (4.0-6.0)
== END 2021-12-20 07:10 | disposition home or self-care (01) ==
LOC: LAB 07:10
PROVIDERS: PCP Family Medicine; Visit Provider Internal Medicine
DX: E03.9 Hypothyroidism, unspecified (principal); E11.9 Type 2 diabetes mellitus without complications; E78.5 Hyperlipidemia, unspecified; N48.6 Induration penis plastica; N52.9 Male erectile dysfunction, unspecified
CPT/HCPCS: 36415; 80053; 80061; 83036; 84403; 84439; 84443

== ENCOUNTER 2022-08-18 06:47 | Outpatient (CLI) | payer BC, SELFPAY ==
[2022-08-18 07:47] LABS: Creatinine Urine, Random 108 mg/dL (39-259); Microalbum Creatinine Ratio Ur 9 mg/dL (0-20); Microalbumin Random Urine 1 ug/dL (0-20)
[2022-08-18 07:48] LABS: Estmated Average Glucose 137; Hemoglobin A1C 6.4 % (4.0-6.0)
[2022-08-18 07:58] LABS: Alanine Aminotransferase 15 U/L (0-41); Albumin Level 3.9 g/dL (3.5-5.2); Alkaline Phosphatase 55 U/L (40-130); Anion Gap 13.2 (5-19); Aspartate Amino Transferase 16 U/L (0-40); Blood Urea Nitrogen 19 mg/dL (6-20); Calcium 9.1 mg/dL (8.5-10.5); Carbon Dioxide 29 mmol/L (22-29); Chloride 105 mmol/L (98-107); Chol HDL Ratio 4.81 mg/dL (1.0-5.00); Cholesterol 226 mg/dL (0-200); Free T4 Free Thyroxine 1.28 ng/dL (0.82-1.77); Globulin 2.7 g/dL (1.3-4.6); Glomerular Filtration Rate 79.4 mL/min (90-130); Glucose 130 mg/dL (65-115); HDL Cholesterol 47 mg/dL (60-100); LDL Cholesterol Calculated 154 mg/dL (50-129); LDL HDL Ratio 3.28 RATIO (0.00-3.22); Osmolality Calculated 300 mOsm/kg (285-295); Potassium 4.2 mmol/L (3.5-5.1); Sodium 143 mmol/L (136-145); Thyroid Stimulating Hormone 3.41 uIU/mL (0.27-4.20); Total Bilirubin 0.4 mg/dL (0.15-1.2); Total Protein 6.6 g/dL (6.6-8.7); Triglycerides 124 mg/dL (0-150)
== END 2022-08-18 06:48 | disposition home or self-care (01) ==
LOC: LAB 06:49
PROVIDERS: PCP Family Medicine; Visit Provider Internal Medicine
DX: E03.9 Hypothyroidism, unspecified (principal); E11.9 Type 2 diabetes mellitus without complications; E78.5 Hyperlipidemia, unspecified
CPT/HCPCS: 36415; 80053; 80061; 82044; 83036; 84439; 84443

== ENCOUNTER 2022-11-23 06:46 | Outpatient (CLI) | payer BC, SELFPAY ==
[2022-11-23 07:42] LABS: Estmated Average Glucose 163; Hemoglobin A1C 7.3 % (4.0-6.0)
[2022-11-23 07:49] LABS: Creatinine Urine, Random 200 mg/dL (39-259); Microalbum Creatinine Ratio Ur 5 mg/dL (0-20); Microalbumin Random Urine 1 ug/dL (0-20)
[2022-11-23 08:06] LABS: 25 Hydroxy Vitamin D 34 ng/mL (30-100); Alanine Aminotransferase 16 U/L (0-41); Alkaline Phosphatase 65 U/L (40-130); Aspartate Amino Transferase 15 U/L (0-40); Blood Urea Nitrogen 18 mg/dL (6-20); Calcium 8.9 mg/dL (8.5-10.5); Carbon Dioxide 28 mmol/L (22-29); Chloride 102 mmol/L (98-107); Chol HDL Ratio 4.36 mg/dL (1.0-5.00); Cholesterol 231 mg/dL (0-200); Globulin 2.8 g/dL (1.3-4.6); Glomerular Filtration Rate 79.1 mL/min (90-130); Glucose 158 mg/dL (65-115); HDL Cholesterol 53 mg/dL (60-100); LDL Cholesterol Calculated 162 mg/dL (50-129); LDL HDL Ratio 3.06 RATIO (0.00-3.22); Osmolality Calculated 293 mOsm/kg (285-295); Sodium 139 mmol/L (136-145); Total Bilirubin 0.6 mg/dL (0.15-1.2); Total Protein 6.8 g/dL (6.6-8.7); Triglycerides 78 mg/dL (0-150)
[2022-11-23 08:35] LABS: Free T4 Free Thyroxine 1.29 ng/dL (0.82-1.77)
[2022-11-24 12:06] LABS: T3 Total 109 ng/dL (76-181)
== END 2022-11-23 06:47 | disposition home or self-care (01) ==
PROVIDERS: PCP Family Medicine; Visit Provider Internal Medicine
DX: E03.9 Hypothyroidism, unspecified (principal); E11.9 Type 2 diabetes mellitus without complications; E78.5 Hyperlipidemia, unspecified; N20.0 Calculus of kidney
CPT/HCPCS: 36415; 80053; 80061; 82044; 82306; 83036; 84439; 84443; 84480